=== PATIENT | female | born 1980 | race Caucasian/White ===

== ENCOUNTER 2018-12-31 18:55 | Emergency (ER) | payer MEDICAID ==
[~2018-12-31] VITALS: Ht 154.9 cm; Wt 70.3 kg
[~2018-12-31 18:55] MED LIST: ACET-8386 PO; CLIN150C1 PO
[2018-12-31 19:04] VITALS: BP 176/80
--- NOTE | 2018-12-31 20:41 | NUR ---
PATIENT AMB TO BED 10.
--- NOTE | 2018-12-31 21:05 | NUR ---
BIB SELF WITH C/O CP AND BACK PAIN ASSOCITATED WITH COUGH. +N/V/D. STATES PAIN 7/10 AT THIS TIME. DENIES FEVER. LUNG SOUNDS DIMINSHED THROUGHOUT. VSS. AAO. NO LABORED BREATHING AT THIS TIME.
--- NOTE | 2018-12-31 21:05 | NUR ---
XRAY AT BEDSIDE.
[2018-12-31 21:45] VITALS: BP 174/89
--- NOTE | 2018-12-31 21:45 | NUR ---
Patient discharged with v/s stable. Written and verbal after care instructions given and explained. Patient alert, oriented and verbalized understanding of instructions. Ambulatory with steady gait. All questions addressed prior to discharge. ID band removed. Patient advised to follow up with PMD. Rx of PREDNISONE, PROMETHAZINE, AND MOTRIN given. Patient educated on indication of medication including possible reaction and side effects. Opportunity to ask questions provided and answered.
[2019-05-05] MEDS ORDERED: HYDR-5 PO (20:42)
[2019-05-05] MEDS ORDERED: METF1000 PO (20:42)
== END 2018-12-31 21:45 | disposition home or self-care (01) ==
LOC: MED 18:55
DX: R05 Cough (principal); R19.7 Diarrhea, unspecified; R11.2 Nausea with vomiting, unspecified; R50.9 Fever, unspecified; Z79.891 Long term (current) use of opiate analgesic; Z79.2 Long term (current) use of antibiotics; Z88.1 Allergy status to other antibiotic agents
CPT/HCPCS: 71045; 99283; Q0092

== ENCOUNTER 2019-06-19 12:13 | Inpatient (IN) | payer MEDICAID ==
[~2019-06-19] VITALS: Ht 154.9 cm; Wt 68.0 kg
--- NOTE | 2019-06-19 07:15 | NUR ---
PT ENDORSED TO SCISSORS SHARPENER NURSE IN STABLE CONDITION. Addendum: 06/19/19 at 1930 by Patti Gustafson RN CHARTED ON WRONG TIME - MEANT 19:15
[~2019-06-19 12:13] MED LIST changes: -ACET-8386 PO; -CLIN150C1 PO; +HYDR-132 PO; +METF1000 PO
[2019-06-19 12:16] VITALS: BP 136/88
--- NOTE | 2019-06-19 12:16 | NUR ---
BIB SELF. AAO X4 C/O VAGINAL BLEEDING, LOWER ABDOMEN PAIN, DIZZINESS X 1 WEEK. PT WAS SEEN BY PCP TODAY AND WAS REFERRED HERE FOR D&C DUE TO UTERINE FIBROIDS. PT DENIES DYSURIA, FEVER, N/V/D, SOB. PT AMBULATED WITH STEADY GAIT. ER TO EVALUATE PT. PMH: ANEMIA, DM, HTN, KIDNEY FUNCTION 20% MED RX: NORETHINDRONE 5MG, MEDROXYROGESTERONE 10 MG, LISINOPRIL, INSULIN, FERROUS-SULFATE 325 MG ALLERGIES: BACITRACIN
--- NOTE | 2019-06-19 12:30 | NUR ---
PT STATES SHE CAN'T GIVE URINE AT THIS TIME. WILL TRY AGAIN LATER
[2019-06-19] MEDS ORDERED: NACL 0.9% 500 ML IV ONE (12:40)
--- NOTE | 2019-06-19 12:50 | NUR ---
IV INITIATED TO LAC 20G INTACT AND PATENT. LAB DRAWN ORDERED AND GIVEN TO LAB. PT TOLERATED WELL.
--- NOTE | 2019-06-19 13:00 | NUR ---
ULTRASOUND AT BEDSIDE.
[2019-06-19 13:07] LABS: BASOPHILS # (AUTO) 0.1 K/uL (0.00-0.22); BASOPHILS % (AUTO) 0.9 % (0.0-2.0); EOSINOPHILS # (AUTO) 0.1 K/uL (0-0.4); EOSINOPHILS % (AUTO) 1.4 % (0.0-4.0); HEMATOCRIT 27.2 % (36-48); HEMOGLOBIN 8.8 g/dL (12.0-16.0); LYMPHOCYTES # (AUTO) 2.3 K/uL (2.5-16.5); MEAN CORPUSCULAR HEMOGLOBIN 24 pg (27-31); MEAN CORPUSCULAR HGB CONC 32 g/dL (33-37); MEAN CORPUSCULAR VOLUME 74.7 fL (80-94); MONOCYTES # (AUTO) 0.4 K/uL (0.8-1.0); MONOCYTES % (AUTO) 4.3 % (1.7-9.3); NEUTROPHILS # (AUTO) 5.3 K/uL (1.8-7.7); NEUTROPHILS % (AUTO) 65.4 % (42.2-75.2); PLATELET COUNT (AUTO) 309 K/uL (140-450); RED BLOOD CELL COUNT(AUTO) 3.65 MIL/uL (4.20-5.40); RED CELL DISTRIBUTION WIDTH 30.4 % (11.6-13.7); WHITE BLOOD COUNT (AUTO) 8.2 K/uL (4.8-10.8)
--- NOTE | 2019-06-19 13:30 | NUR ---
Patient being evaluated by Dr. Odonnell at bedside.
[2019-06-19 13:38] LABS: PROTHROMBIN TIME 9.2 secs (10.8-13.4)
--- NOTE | 2019-06-19 13:40 | NUR ---
PT AMBULATED TO THE BATHROOM WITH STEADY GAIT. URINE CUP GIVEN.
--- NOTE | 2019-06-19 13:45 | NUR ---
PT AMBULATED BACK TO BED WITH STEADY GAIT. UNABLE TO GIVE URINE SPECIMEN AT THIS TIME. WILL TRY AGAIN LATER. PROVIDED WITH FLUIDS.
[2019-06-19 13:50] LABS: ANION GAP 16.4 (8-16); CARBON DIOXIDE 19.5 mmol/L (21-32); POTASSIUM 6.9 mmol/L (3.5-5.1)
[2019-06-19 13:51] LABS: CREATININE 2.2 mg/dL (0.6-1.3); TOTAL BILIRUBIN 0.1 mg/dL (0.0-1.0)
[2019-06-19 13:52] LABS: ALBUMIN 3.2 g/dL (3.4-5.0)
[2019-06-19] MEDS ORDERED: CALCIUM GLUCONATE 10% 1000 MG/10 ML VIAL IVP ONE (14:00)
[2019-06-19] MEDS ORDERED: SODIUM POLYSTYRENE 15 GM/60 ML UDBTL PO ONE (14:00)
[2019-06-19] MEDS ORDERED: INSULIN REGULAR, HUMAN 100 UNIT/ML VIAL IVP ONE (14:00)
[2019-06-19] MEDS ORDERED: DEXTROSE 50% 50 ML SYR IVP ONE (14:00)
--- NOTE | 2019-06-19 14:31 | NUR ---
PT OFFERED SNACKS AND JUICE AT THIS TIME.
[2019-06-19] MEDS ORDERED: LISI-420 PO (14:39)
[2019-06-19] MEDS ORDERED: MEDR10TA33 PO (14:39)
[2019-06-19] MEDS ORDERED: FERR325E14 PO (14:40)
[2019-06-19] MEDS ORDERED: INSU100I7 SQ (14:47)
[2019-06-19] MEDS ORDERED: NORE5TAB6 PO (14:49)
--- NOTE | 2019-06-19 15:00 | NUR ---
URINE SPECIMEN OBTAINED VIA CATH URING STERILE TECHNIQUE. PT TOLERATED WELL. URINE OUTPUT 100 ML OBTAINED.
[2019-06-19] MEDS ORDERED: NACL 0.9% 1,000 ML IV SCH (15:29)
[2019-06-19] MEDS ORDERED: ZOLPIDEM 5 MG TAB PO PRN (15:30)
[2019-06-19] MEDS ORDERED: ACETAMINOPHEN 325 MG TAB PO PRN (15:30)
[2019-06-19] MEDS ORDERED: DOCUSATE SODIUM 100 MG GELCAP PO PRN (15:30)
[2019-06-19] MEDS ORDERED: ONDANSETRON 4 MG/2 ML VIAL IM/IVP PRN (15:30)
--- NOTE | 2019-06-19 15:58 | NUR ---
PT ASLEEP. EASILY AROUSABLE BY VOICE. EVEN AND UNLABORED BREATHING. NO SIGNS AND SYMPTOMS OF DISTRESS NOTED. DIMMED LIGHTS FOR COMFORT
[2019-06-19 16:30] VITALS: BP 172/75
[2019-06-19 16:30] LABS: APPEARANCE,URINE CLOUDY (CLEAR); BILIRUBIN,URINE NEGATIVE (NEGATIVE); BLOOD, URINE 2+ (NEGATIVE); LEUKOCYTE ESTERASE ,URINE NEGATIVE (NEGATIVE); NITRITE, URINE NEGATIVE (NEGATIVE); PH,URINE 5.5 (5.0-9.0); UGLUCOSE 1+ (NEGATIVE)
--- NOTE | 2019-06-19 16:30 | NUR ---
Patient will be admitted to care of DR SUAREZ. Admited to TELE. Will go to room 105 A. Belongings list completed. Report to MI WELCH.
--- NOTE | 2019-06-19 16:30 | NUR ---
RECEIVED PT FROM ED NURSE MELY. PT IS AWAKE AND ALERT, AND ABLE TO AMBULATE WITHOUT ASSISTANCE. PT IS ON ROOM AIR, SKIN IS INTACT. IV SITE IS IN THE L AC 20 G. PT STATES THAT SHE IS STILL BLEEDING "A LITTLE BIT". SHE IS NOT C/O ANY PAIN OR DISCOMFORT AT THIS TIME. VS UPON ADMISSION: BP 172/75, HR 102, O2 100%, TEMP 98.2, RR 16. CALL LIGHT GIVEN WITHIN REACH, WILL CONTINUE TO MONITOR PT.
[2019-06-19 16:34] LABS: COLOR,URINE STRAW (YELLOW)
--- NOTE | 2019-06-19 16:37 | NUR ---
PT SEEN BY DR VO. HE SAID HE WANTS PT TO BE NPO AFTER MIDNIGHT TO POSSIBLY DO THE D&C TOMORROW.
[2019-06-19 16:38] LABS: RBC,URINE NONE SEEN /HPF (0-5); WBC,URINE NONE SEEN /HPF (0-5)
[2019-06-19 16:39] LABS: BARBITURATE, URINE NEG. ng/ml (NEG <=200); BENZODIAZEPINE, URINE NEG. ng/mL (NEG <=200); CANNABINOID, URINE NEG. ng/mL (NEG <=50); COCAINE, URINE NEG. ng/mL (NEG <=300); OPIATE, URINE NEG. ng/mL (NEG <=2000); PHENCYCLIDINE SCREEN,URINE NEG. ng/mL (NEG <=25)
[2019-06-19 16:44] LABS: URINE AMORPHOUS URATE 3+ /HPF (None Seen)
--- NOTE | 2019-06-19 17:17 | NUR ---
PT SEEN BY DR ESTRADA
[2019-06-19] MEDS ORDERED: HYDR-39 PO (17:28)
[2019-06-19] MEDS ORDERED: DEXTROSE 50% 50 ML SYR IVP PRN (17:30)
[2019-06-19] MEDS ORDERED: INSULIN LISPRO SLIDING SCALE 100 UNITS/ML VIAL SUBQ PRN (17:30)
[2019-06-19 17:40] LABS: FREE T4 (FREE THYROXINE) 0.91 ng/dL (0.76-1.46); MAGNESIUM 1.8 mg/dL (1.8-2.4); PHOSPHORUS 5.1 mg/dL (2.5-4.9); THYROID STIMULATING HORMONE 1.94 uIU/mL (0.34-3.74)
[2019-06-19] MEDS ORDERED: hydrALAZINE 20 MG/ML VIAL IVP PRN (17:50)
--- NOTE | 2019-06-19 18:41 | NUR ---
PT'S OWN MED (NORETHINDRONE 5 MG TABS) TAKEN TO PHARMACY FOR DISPENSING.
--- NOTE | 2019-06-19 19:15 | NUR ---
RECEIVED BEDSIDE REPORT FROM AM SHIFT RN REBEKAH, FOR PT'S CONTINUITY OF CARE. PT IS LYING DOWN, AWAKE, ALERT, ORIENTED X 4, WATCHING TV, IS ON ROOM AIR, ON RNFA, HAS IV ON LEFT AC 20G INFUSING WITH NS AT 60ML/HR, DENIES PAIN AT THIS TIME. EXPLAINED TO PT HOLE DIGGER OPERATOR ROUTINE, PT VERBALIZED UNDERSTANDING. BED IS ON LOW POSITION, SIDE RAILS ARE UP, AND CALL LIGHT IS WITHIN REACH. WILL MONITOR PT THROUGHOUT SHIFT.
--- NOTE | 2019-06-19 19:15 | NUR ---
PT ENDORSED TO EDGER MACHINE HELPER NURSE IN STABLE CONDITION.
[2019-06-19 20:00] VITALS: BP 158/70
[2019-06-19] MEDS: INSULIN LANTUS 100 UNITS/ML 10 ML VIAL SUBQ SCH (20:29)
[2019-06-19] MEDS: BLOOD GLUCOSE MONITORING 1 DEV DEV FS SCH (20:39)
--- NOTE | 2019-06-19 20:40 | NUR ---
VS AND BLOOD GLUCOSE CHECKED AND CHARTED. NO INSULIN COVERAGE NEEDED. ADMINISTERED SCHEDULED SUBQ MEDICATION ORDERED. PT TOLERATED THEM WELL. WILL CONTINUE TO MONITOR PT.
[2019-06-19] MEDS ORDERED: INSULIN GLARGINE HUM REC ANLOG 20 UNIT SQ SCH (21:00)
[2019-06-19 21:27] LABS: BASOPHILS # (AUTO) 0.1 K/uL (0.00-0.22); BASOPHILS % (AUTO) 0.7 % (0.0-2.0); EOSINOPHILS # (AUTO) 0.2 K/uL (0-0.4); EOSINOPHILS % (AUTO) 1.9 % (0.0-4.0); HEMATOCRIT 24.6 % (36-48); LYMPHOCYTES # (AUTO) 2.7 K/uL (2.5-16.5); MEAN CORPUSCULAR HEMOGLOBIN 24 pg (27-31); MEAN CORPUSCULAR HGB CONC 33 g/dL (33-37); MEAN CORPUSCULAR VOLUME 74.5 fL (80-94); MONOCYTES # (AUTO) 0.6 K/uL (0.8-1.0); MONOCYTES % (AUTO) 5.8 % (1.7-9.3); NEUTROPHILS # (AUTO) 6.4 K/uL (1.8-7.7); NEUTROPHILS % (AUTO) 64.6 % (42.2-75.2); PLATELET COUNT (AUTO) 266 K/uL (140-450); RED CELL DISTRIBUTION WIDTH 30.5 % (11.6-13.7); WHITE BLOOD COUNT (AUTO) 9.9 K/uL (4.8-10.8)
--- NOTE | 2019-06-19 22:00 | NUR ---
CURRENT IV SITE HAS HIGH PRESSURE. STARTED NEW IV ON RIGHT FA 22G. PT TOLERATED IT WELL. DC LEFT AC IV, CATH TIP PATENT AND INTACT.
[2019-06-19 22:03] LABS: ANION GAP 14.4 (8-16); CREATININE 1.7 mg/dL (0.6-1.3); POTASSIUM 5.4 mmol/L (3.5-5.1)
[2019-06-20] VITALS: BP 157/65
--- NOTE | 2019-06-20 00:15 | NUR ---
VS CHECKED AND CHARTED. PT DENIES ANY PAIN AT THIS TIME. PT STATES SCANT VAGINAL BLEED, ONLY WHEN WIPING AFTER USING THE RESTROOM. WILL CONTINUE TO MONITOR PT.
--- NOTE | 2019-06-20 02:00 | NUR ---
MADE ROUNDS. PT LYING DOWN ASLEEP, WITH NO SIGNS OF DISTRESS. WILL CONTINUE TO MONITOR PT.
[2019-06-20 04:00] VITALS: BP 152/77
--- NOTE | 2019-06-20 04:20 | NUR ---
VS CHECKED AND CHARTED. PT DENIES PAIN AT THIS TIME. USED THE RESTROOM AND HAD BOWEL MOVEMENT, WITH VERY LIGHT VAGINAL BLEED WHEN WIPING AFTER. WILL CONTINUE TO MONITOR PT.
[2019-06-20] MEDS ORDERED: METOPROLOL 25 MG TAB PO SCH (04:30)
[2019-06-20] MEDS: DEXT 5% / NACL 0.45% 1,000 ML IV SCH ×2 (04:45→14:15)
--- NOTE | 2019-06-20 04:55 | NUR ---
ADMINISTERED SCHEDULED PO AND IV FLUID ORDERED. PT TOLERATED IT WELL. PT TEACHING GIVEN REGARDING MEDICATION, IV FLUID, AND PROCEDURE. PT VERBALIZED UNDERSTANDING. WILL CONTINUE TO MONITOR PT.
--- NOTE | 2019-06-20 05:45 | NUR ---
BLOOD GLUCOSE CHECKED AND CHARTED. RESULT IS 152, SPOKE TO DR. PERERA, PT HAVING SX AT 1400 TODAY, NPO SINCE MIDNIGHT. MD ADVISED TO HOLD OFF INSULIN, AND RECHECK BEFORE LUNCH TIME. PT AWARE AND VERBALIZED UNDERSTANDING.
[2019-06-20 05:48] LABS: BASOPHILS # (AUTO) 0.1 K/uL (0.00-0.22); BASOPHILS % (AUTO) 0.6 % (0.0-2.0); EOSINOPHILS # (AUTO) 0.2 K/uL (0-0.4); EOSINOPHILS % (AUTO) 2.9 % (0.0-4.0); HEMATOCRIT 22.5 % (36-48); HEMOGLOBIN 7.4 g/dL (12.0-16.0); LYMPHOCYTES # (AUTO) 2.3 K/uL (2.5-16.5); LYMPHOCYTES % (AUTO) 26.8 % (20.5-51.1); MEAN CORPUSCULAR HEMOGLOBIN 25 pg (27-31); MEAN CORPUSCULAR HGB CONC 33 g/dL (33-37); MEAN CORPUSCULAR VOLUME 75.1 fL (80-94); MONOCYTES # (AUTO) 0.6 K/uL (0.8-1.0); MONOCYTES % (AUTO) 7.4 % (1.7-9.3); NEUTROPHILS # (AUTO) 5.2 K/uL (1.8-7.7); NEUTROPHILS % (AUTO) 62.3 % (42.2-75.2); PLATELET COUNT (AUTO) 231 K/uL (140-450); RED BLOOD CELL COUNT(AUTO) 2.99 MIL/uL (4.20-5.40); RED CELL DISTRIBUTION WIDTH 29.8 % (11.6-13.7); WHITE BLOOD COUNT (AUTO) 8.4 K/uL (4.8-10.8)
[2019-06-20] MEDS: BLOOD GLUCOSE MONITORING 1 DEV DEV FS SCH ×4 (05:53→20:44)
--- NOTE | 2019-06-20 06:14 | NUR ---
PT LYING DOWN ASLEEP, WITH NO SIGNS OF DISTRESS. WILL ENDORSE TO AM SHIFT RN FOR PT'S CONTINUITY OF CARE, WILL ENDORSE REGARDING BLOOD GLUCOSE CHECK/INSULIN COVERAGE.
[2019-06-20 06:40] LABS: CARBON DIOXIDE 18.5 mmol/L (21-32); CREATININE 1.7 mg/dL (0.6-1.3); POTASSIUM 4.5 mmol/L (3.5-5.1)
[2019-06-20 06:46] LABS: MAGNESIUM 1.4 mg/dL (1.8-2.4); PHOSPHORUS 5.5 mg/dL (2.5-4.9)
--- NOTE | 2019-06-20 07:10 | NUR ---
RECEIVED ENDORSEMENT FROM DIAMOND POWDER MIXER NURSE. PATIENT IS AAOX4, ICELANDIC SPEAKING. RESPIRATIONS ARE EVEN AND UNLABORED ON ROOM AIR. PATIENT DENIES ANY PAIN AT THIS TIME. RIGHT FA 22G IV INTACT, PATENT, AND INFUSING IVF. PLAN OF CARE WAS REVIEWED WITH PATIENT, PATIENT VERBALIZED UNDERSTANDING. SAFETY MEASURES IN PLACE, CALL LIGHT WITHIN REACH.
[2019-06-20 08:00] VITALS: BP 142/74
[2019-06-20] MEDS: HYDROcodone/APAP 5/325 MG 1 TAB TAB PO PRN (08:17)
--- NOTE | 2019-06-20 08:17 | NUR ---
PATIENT HAS BEEN SCREENED AND CATEGORIZED MODERATE NUTRITION RISK. PATIENT WILL BE SEEN WITHIN 3-5 DAYS OF ADMISSION. 06/21/19-06/23/[address]
[2019-06-20] MEDS: LISINOPRIL 20 MG TAB PO SCH (08:32)
[2019-06-20] MEDS: FERROUS SULFATE 325 MG TABEC PO SCH (08:32)
[2019-06-20] MEDS: HYDROCHLOROTHIAZIDE 25 MG TAB PO SCH (08:33)
--- NOTE | 2019-06-20 08:33 | NUR ---
ADMINISTERED SCHEDULED MEDICATIONS. PATIENT TOLERATED WELL. NO OTHER NEEDS AT THIS TIME, WILL CONTINUE TO MONITOR.
[2019-06-20] MEDS ORDERED: NORETHINDRONE ACETATE 5 MG PO SCH (09:00)
[2019-06-20] MEDS ORDERED: NON-FORMULARY ITEM (Lisinopril/Hydrochlorothiazide (Lisinopril-Hctz 20-25 mg Tab) 1 TAB) PO SCH (09:00)
[2019-06-20] MEDS ORDERED: MAG SULF 2000 MG/WATER PREMIX 50 ML IV SCH (10:00)
[2019-06-20] MEDS ORDERED: MORPHINE SULFATE 2 MG/ML SYR IVP PRN (10:50)
--- NOTE | 2019-06-20 10:56 | NUR ---
PATIENT VOMITED A SMALL AMOUNT OF YELLOW EMESIS. ADMINISTERED ZOFRAN PRN IVP FOR N/V. PATIENT TOLERATED WELL. NO OTHER NEEDS AT THIS TIME, WILL CONTINUE TO MONITOR.
[2019-06-20 12:00] VITALS: BP 137/74
--- NOTE | 2019-06-20 12:15 | NUR ---
PATIENT SLEEPING, VISIBLE RISE AND FALL OF CHEST. NO OTHER NEEDS AT THIS TIME, WILL CONTINUE TO MONITOR.
--- NOTE | 2019-06-20 14:07 | NUR ---
PATIENT TAKEN OFF UNIT. WILL CONTINUE TO MONITOR UPON ARRIVAL.
[2019-06-20 15:07] LABS: TRANSFERRIN 237 mg/dL (200-370)
[2019-06-20] MEDS ORDERED: PROPOFOL 200 MG/20 ML VIAL IV ONE (16:11)
[2019-06-20] MEDS ORDERED: ONDANSETRON 4 MG/2 ML VIAL IVP ONE (16:11)
[2019-06-20] MEDS ORDERED: DESFLURANE 240 ML BTL INH ONE (16:11)
[2019-06-20] MEDS ORDERED: fentaNYL 0.05 MG/ML VIAL ONE (16:13)
[2019-06-20] MEDS ORDERED: KETOROLAC 30 MG/ML VIAL IVP ONE (16:40)
[2019-06-20 17:25] VITALS: BP 159/79
--- NOTE | 2019-06-20 17:25 | NUR ---
PATIENT RETURNED FROM OR. REPORT OBTAINED FROM REBEKAH. PATIENT IS AWAKE AND ALERT. VS OBTAINED. PATIENT IS STABLE AT THIS TIME, WILL CONTINUE TO MONITOR.
--- NOTE | 2019-06-20 19:12 | NUR ---
ENDORSED PATIENT TO SHOWROOM EXECUTIVE DIRECTOR NURSE FOR CONTINUITY OF CARE. PATIENT IS STABLE AT THIS TIME.
--- NOTE | 2019-06-20 19:15 | NUR ---
RECEIVED PT FROM JERMAINE RN PT IS AAOX4 AMBULATORY IV ON RT FOREARM INFUSING WELL, ON TELEMETRY ST NOT DISTRESS NOTED NOT ACTIVE VAGINAL BLEEDING INITIAL ASSESSMENT DONE
[2019-06-20 20:00] VITALS: BP 153/77
[2019-06-20] MEDS: INSULIN LANTUS 100 UNITS/ML 10 ML VIAL SUBQ SCH (20:48)
--- NOTE | 2019-06-20 21:30 | NUR ---
BLOOD SUGAR TEST 188 COVERAGE WITH 2 UNITS SUBQ HUMALOG FOLLOW PROTOCOL
[2019-06-20] MEDS: NACL 0.9% 1,000 ML IV SCH (22:50)
[2019-06-21] VITALS: BP 139/70
--- NOTE | 2019-06-21 | NUR ---
PT SLEEPING WELL NOT DISTRESS NOTED ON TELEMETRY SR
[2019-06-21 04:00] VITALS: BP 134/61
--- NOTE | 2019-06-21 04:00 | NUR ---
SPONGE BATH GIVEN LINEN CHANGED NOT DISTRESS NOTED ON TELE SR
[2019-06-21 05:52] LABS: BASOPHILS # (AUTO) 0.1 K/uL (0.00-0.22); BASOPHILS % (AUTO) 0.7 % (0.0-2.0); EOSINOPHILS # (AUTO) 0.2 K/uL (0-0.4); EOSINOPHILS % (AUTO) 2.3 % (0.0-4.0); HEMATOCRIT 22.5 % (36-48); HEMOGLOBIN 7.5 g/dL (12.0-16.0); LYMPHOCYTES # (AUTO) 2.7 K/uL (2.5-16.5); MEAN CORPUSCULAR HEMOGLOBIN 25 pg (27-31); MEAN CORPUSCULAR HGB CONC 33 g/dL (33-37); MEAN CORPUSCULAR VOLUME 75.6 fL (80-94); MONOCYTES # (AUTO) 0.5 K/uL (0.8-1.0); MONOCYTES % (AUTO) 5.2 % (1.7-9.3); NEUTROPHILS # (AUTO) 5.4 K/uL (1.8-7.7); PLATELET COUNT (AUTO) 267 K/uL (140-450); RED BLOOD CELL COUNT(AUTO) 2.98 MIL/uL (4.20-5.40); WHITE BLOOD COUNT (AUTO) 8.8 K/uL (4.8-10.8)
[2019-06-21] MEDS: BLOOD GLUCOSE MONITORING 1 DEV DEV FS SCH ×2 (06:22→11:30)
--- NOTE | 2019-06-21 06:24 | NUR ---
BLOOD SUGAR TEST 133 NOT COVERAGE PT SLEEPING WELL ON TELE ST
[2019-06-21 06:35] LABS: ANION GAP 13.9 (8-16); CREATININE 1.6 mg/dL (0.6-1.3); POTASSIUM 4.9 mmol/L (3.5-5.1)
[2019-06-21 06:42] LABS: MAGNESIUM 1.7 mg/dL (1.8-2.4); PHOSPHORUS 4.8 mg/dL (2.5-4.9)
[2019-06-21 07:30] LABS: LYMPHOCYTES % (AUTO) 30.7 % (20.5-51.1); NEUTROPHILS % (AUTO) 61.1 % (42.2-75.2)
[2019-06-21] MEDS: HYDROcodone/APAP 5/325 MG 1 TAB TAB PO PRN (07:36)
[2019-06-21 08:00] VITALS: BP 143/73
--- NOTE | 2019-06-21 08:25 | NUR ---
RECEIVED ENDORSEMENT CHARGE NURSE. PATIENT IS AAOX4, EGYPTIAN SPEAKING. RESPIRATIONS ARE EVEN AND UNLABORED ON ROOM AIR. PATIENT DENIES ANY PAIN AT THIS TIME. RIGHT FA 22G IV INTACT, PATENT, AND INFUSING IVF. PLAN OF CARE WAS REVIEWED WITH PATIENT, PATIENT VERBALIZED UNDERSTANDING. SAFETY MEASURES IN PLACE, CALL LIGHT WITHIN REACH.
[2019-06-21] MEDS: FERROUS SULFATE 325 MG TABEC PO SCH (09:33)
[2019-06-21] MEDS: LISINOPRIL 20 MG TAB PO SCH (09:33)
[2019-06-21] MEDS: HYDROCHLOROTHIAZIDE 25 MG TAB PO SCH (09:33)
[2019-06-21] MEDS: NACL 0.9% 1,000 ML IV SCH (09:34)
--- NOTE | 2019-06-21 09:35 | NUR ---
ADMINISTERED SCHEDULED MEDICATIONS. PATIENT TOLERATED WELL. NO OTHER NEEDS AT THIS TIME, WILL CONTINUE TO MONITOR.
--- NOTE | 2019-06-21 11:34 | NUR ---
PATIENT RESTING IN BED. NO SIGNS OF DISTRESS. NO OTHER NEEDS AT THIS TIME, WILL CONTINUE TO MONITOR.
[2019-06-21 12:00] VITALS: BP 151/78
[2019-06-21] MEDS ORDERED: MAGNESIUM OXIDE 400 MG TAB PO SCH (12:00)
--- NOTE | 2019-06-21 13:08 | NUR ---
DISCHARGE INSTRUCTIONS PROVIDED TO PATIENT, PATIENT VERBALIZED UNDERSTANDING. ALL QUESTIONS AND CONCERNS ADDRESSED. IV WAS REMOVED, CANNULA INTACT, WITH MINIMAL BLEEDING. PATIENT TO BE DISCHARGED HOME. PENDING TO COME PICK HER UP.
--- NOTE | 2019-06-21 13:55 | NUR ---
ID BAND WAS REMOVED. PATIENT WAS LEFT UNIT VIA WHEELCHAIR. ALL BELONGINGS LEFT WITH PATIENT. PATIENT ACCOMPANIED BY . PATIENT IS STABLE AT THIS TIME.
[2019-06-23 06:07] LABS: FERRITIN 48 ng/mL (15-150); FOLIC ACID > 20.00 ng/mL (>3.0)
== END 2019-06-21 13:40 | disposition home or self-care (01) | DRG 517 ==
LOC: MED 12:13 → MTU 15:29 → MED 16:15
PROVIDERS: ADMIT General Practice; ATTEND General Practice
PROC: 0UDB7ZZ Extraction of Endometrium, Via Natural or Artificial Opening (ICD-10-PCS; principal; 2019-06-20 14:00)
DX: N93.8 Other specified abnormal uterine and vaginal bleeding (principal); N17.0 Acute kidney failure with tubular necrosis; E11.22 Type 2 diabetes mellitus with diabetic chronic kidney disease; E87.5 Hyperkalemia; E11.65 Type 2 diabetes mellitus with hyperglycemia; B35.1 Tinea unguium; D50.9 Iron deficiency anemia, unspecified; E83.42 Hypomagnesemia; E11.9 Type 2 diabetes mellitus without complications; N18.9 Chronic kidney disease, unspecified; I12.9 Hypertensive chronic kidney disease with stage 1 through stage 4 chronic kidney disease, or unspecified chronic kidney disease; N83.202 Unspecified ovarian cyst, left side; N83.201 Unspecified ovarian cyst, right side; Z88.8 Allergy status to other drugs, medicaments and biological substances; Z83.3 Family history of diabetes mellitus; Z82.49 Family history of ischemic heart disease and other diseases of the circulatory system
CPT/HCPCS: 36415; 76830; 76856; 80048; 80053; 80305; 81001; 81025; 82150; 82607; 82728; 82746; 82948; 83036; 83540; 83690; 83735; 83880; 84100; 84134; 84439; 84443; 84484; 85025; 85045; 85610; 85730; 87081; 88305; 93005; 96361; 96374; 96375; 99285; J0360; J0610; J1815; J2270; J2405; J2704; J3010; J3475; J7030; Q0092

== ENCOUNTER 2019-12-08 16:44 | Inpatient (IN) | payer MEDICAID ==
[~2019-12-08] VITALS: Ht 152.4 cm; Wt 78.0 kg
[~2019-12-08 16:44] MED LIST changes: +FERR325E14 PO; -HYDR-132 PO; +HYDR-39 PO; +INSU100I7 SQ; -METF1000 PO; +NORE5TAB6 PO
[2019-12-08 16:58] VITALS: BP 152/80
--- NOTE | 2019-12-08 17:03 | NUR ---
URINE CUP HANDED TO PT FOR SAMPLE
--- NOTE | 2019-12-08 17:15 | NUR ---
39 Y/O PRESENTS TO THE ER STATING SHE WAS TOLD BY RADIO INSTALLER AUTOMOBILE DOCTOR TO COME INTO ER DUE TO LOW HGB, AND NEEDING BLOOD TRANSFUSION. PT STATES SHE HAS BEEN VOMITING X THIS MORNING. HAS HAD SOME DIZZINESS THROUGHOUT THE DAY. DENIES FEVER, DIARRHEA. DENIES ANY PAIN. WILL CONTINUE TO MONITOR. SIDERAIL X 1. PMH: DM, HTN, HYPERLIPIDEMIA, ANEMIA ALLERGIES: BACITRACIN
--- NOTE | 2019-12-08 17:20 | NUR ---
20 G BULMARO, LABS DRAWN
[2019-12-08 17:50] LABS: BASOPHILS # (AUTO) 0.1 K/uL (0.00-0.22); BASOPHILS % (AUTO) 0.6 % (0.0-2.0); EOSINOPHILS # (AUTO) 0.1 K/uL (0-0.4); EOSINOPHILS % (AUTO) 1.3 % (0.0-4.0); HEMATOCRIT 20.3 % (36-48); LYMPHOCYTES # (AUTO) 2.2 K/uL (2.5-16.5); LYMPHOCYTES % (AUTO) 20.7 % (20.5-51.1); MEAN CORPUSCULAR HEMOGLOBIN 27 pg (27-31); MEAN CORPUSCULAR HGB CONC 34 g/dL (33-37); MEAN CORPUSCULAR VOLUME 79.8 fL (80-94); MONOCYTES # (AUTO) 0.5 K/uL (0.8-1.0); MONOCYTES % (AUTO) 5.1 % (1.7-9.3); NEUTROPHILS # (AUTO) 7.8 K/uL (1.8-7.7); NEUTROPHILS % (AUTO) 72.3 % (42.2-75.2); PLATELET COUNT (AUTO) 373 K/uL (140-450); RED BLOOD CELL COUNT(AUTO) 2.54 MIL/uL (4.20-5.40); RED CELL DISTRIBUTION WIDTH 13.5 % (11.6-13.7); WHITE BLOOD COUNT (AUTO) 10.7 K/uL (4.8-10.8)
[2019-12-08 17:53] LABS: HEMOGLOBIN 6.8 g/dL (12.0-16.0)
--- NOTE | 2019-12-08 18:02 | NUR ---
ERMD BEDSIDE EVALUATING PT
[2019-12-08 18:12] LABS: ALBUMIN 2.8 g/dL (3.4-5.0); ANION GAP 12.6 (8-16); CARBON DIOXIDE 23.9 mmol/L (21-32); CREATININE 3.1 mg/dL (0.6-1.3); POTASSIUM 4.5 mmol/L (3.5-5.1); TOTAL BILIRUBIN 0.1 mg/dL (0.0-1.0)
[2019-12-08 18:45] LABS: APPEARANCE,URINE CLEAR (CLEAR); BILIRUBIN,URINE NEGATIVE (NEGATIVE); BLOOD, URINE 2+ (NEGATIVE); COLOR,URINE YELLOW (YELLOW); LEUKOCYTE ESTERASE ,URINE NEGATIVE (NEGATIVE); NITRITE, URINE NEGATIVE (NEGATIVE); UGLUCOSE TRACE (NEGATIVE)
[2019-12-08 18:55] LABS: PROTHROMBIN TIME 9.5 secs (10.8-13.4)
[2019-12-08] MEDS ORDERED: ATOR20TA PO (19:03)
--- NOTE | 2019-12-08 19:21 | NUR ---
REPORT GIVEN TO MI COELHO. TRANSFER OF CARE AT THIS TIME
[2019-12-08 19:37] LABS: RBC,URINE 11-20 (MOD) /HPF (0-5); WBC,URINE 0-5 /HPF (0-5)
[2019-12-08] MEDS ORDERED: ONDANSETRON 4 MG/2 ML VIAL IM/IVP PRN (19:45)
[2019-12-08] MEDS ORDERED: DOCUSATE SODIUM 100 MG GELCAP PO PRN (19:45)
[2019-12-08 20:00] VITALS: BP 171/85
--- NOTE | 2019-12-08 20:10 | NUR ---
Patient will be admitted to care of DR. SUAREZ. Admited to TELE. Will go to room 123A. Belongings list completed. Report to MI FISHER.
--- NOTE | 2019-12-08 20:10 | NUR ---
ADMITTED THIS 39 YEAR OLD FEMALE FROM ER PER LONA WITH CC OF ABNORMAL LAB (LOW HEMOGLOBIN), AMBULATED TO BED WITH STEADY GAIT, SLIGHT DIZZINESS NOTED, VITAL SIGNS TAKEN, BP ELEVATED, DENIES CHEST PAIN BUT COMPLAINING OH HEADACHE AND ABDOMINAL PAIN, DENIES ANY VAGINAL BLEEDING OR SPOTTING, WILL INFORM DR ESTRADA REGARDING ELEVATED BP, PLAN OF CARE DISCUSSED, TO RECEIVED 1 UNIT PRBC TONIGHT, SAFETY MEASURES IN PLACE, CALL LIGHT WITHIN REACH.
[2019-12-08 20:44] LABS: MAGNESIUM 1.7 mg/dL (1.8-2.4); PHOSPHORUS 4.2 mg/dL (2.5-4.9); THYROID STIMULATING HORMONE 2.64 uIU/mL (0.34-3.74)
[2019-12-08] MEDS ORDERED: HYDR-39 PO (20:51)
[2019-12-08] MEDS ORDERED: DEXTROSE 50% 50 ML SYR IVP PRN (20:55)
[2019-12-08] MEDS: INSULIN LANTUS 100 UNITS/ML 10 ML VIAL SUBQ SCH (21:00)
[2019-12-08] MEDS: ATORVASTATIN 20 MG TAB PO SCH (21:00)
[2019-12-08] MEDS ORDERED: NORE-29 PO (21:16)
[2019-12-08] MEDS: BLOOD GLUCOSE MONITORING 1 DEV DEV FS SCH (21:25)
[2019-12-08] MEDS: NACL 0.9% 1,000 ML IV SCH (21:25)
[2019-12-08] MEDS ORDERED: CRUSHER, PILL MC ONE (21:27)
[2019-12-08 21:46] LABS: BARBITURATE, URINE NEGATIVE ng/ml (NEG <=200); BENZODIAZEPINE, URINE NEGATIVE ng/mL (NEG <=200); CANNABINOID, URINE NEGATIVE ng/mL (NEG <=50); COCAINE, URINE NEGATIVE ng/mL (NEG <=300); OPIATE, URINE NEGATIVE ng/mL (NEG <=2000); PHENCYCLIDINE SCREEN,URINE NEGATIVE ng/mL (NEG <=25)
[2019-12-08] MEDS ORDERED: PNEUMOCOCCAL VACCINE 23 MCG/0.5 ML VIAL IMVAC PRN (22:15)
[2019-12-08] MEDS ORDERED: INFLUENZA VACCINE QUAD 0.5 ML SYR IMVAC PRN (22:15)
--- NOTE | 2019-12-08 22:46 | NUR ---
PT AMBULATED TO TOILET WITH STANDBY ASSIST, STEADY GAIT, BM WITH LIQUID STOOL, UNABLE TO COLLECT STOOL SPECIMEN FOR LAB, PER PT IT'S MIX WITH URINE, PROVIDED WITH NEW CONTAINER AND REINFORCE TO COLLECT STOOL ONLY, VERBALIZED UNDERSTANDING, BLOOD TRANSFUSION ON-GOING, LATEST BP-171/87, ASYMPTOMATIC, DR ESTRADA MADE AWARE, WILL CHECK PT.
[2019-12-08] MEDS ORDERED: ENALAPRILAT 2.5 MG/2 ML VIAL IVP SCH (22:50)
[2019-12-08] MEDS ORDERED: guaiFENesin DM 200/20 MG-10 ML 10 ML UDC PO PRN (22:55)
[2019-12-08] MEDS ORDERED: MAG SULF 2000 MG/WATER PREMIX 50 ML IV SCH (23:10)
[2019-12-08] MEDS: ACETAMINOPHEN 325 MG TAB PO PRN (23:24)
[2019-12-09] MEDS: NACL 0.9% 1,000 ML IV SCH (00:25)
[2019-12-09 00:30] VITALS: BP 166/77
[2019-12-09] MEDS: ZOLPIDEM 5 MG TAB PO SCH ×2 (00:40→20:19)
--- NOTE | 2019-12-09 00:50 | NUR ---
PT'S BLOOD PRESSURE-166/77 AFTER BLOOD TRANSFUSION AND VASOTEC IVP GIVEN, DR ESTRADA MADE AWARE, WILL CHECK ON PT, IVF OF NS AT 60ML/H AND MAG RIDER IV INFUSING AT THIS TIME, MONITORED CLOSELY.
[2019-12-09] MEDS ORDERED: MORPHINE SULFATE 2 MG/ML SYR IVP PRN (01:05)
[2019-12-09] MEDS ORDERED: hydrALAZINE 20 MG/ML VIAL IVP SCH ×2 (01:05→16:25)
[2019-12-09] MEDS ORDERED: APAP/BUTAL/CAFF 325/50/40 MG 1 TAB PO PRN (01:05)
[2019-12-09] MEDS ORDERED: hydrALAZINE 20 MG/ML VIAL IVP PRN (01:05)
[2019-12-09 02:21] LABS: BASOPHILS # (AUTO) 0.1 K/uL (0.00-0.22); BASOPHILS % (AUTO) 0.6 % (0.0-2.0); EOSINOPHILS # (AUTO) 0.1 K/uL (0-0.4); EOSINOPHILS % (AUTO) 1.2 % (0.0-4.0); LYMPHOCYTES # (AUTO) 2.9 K/uL (2.5-16.5); MEAN CORPUSCULAR HGB CONC 34 g/dL (33-37); MONOCYTES # (AUTO) 0.8 K/uL (0.8-1.0); MONOCYTES % (AUTO) 7.3 % (1.7-9.3); RED CELL DISTRIBUTION WIDTH 14.2 % (11.6-13.7)
[2019-12-09 02:28] LABS: LYMPHOCYTES % (AUTO) 25.6 % (20.5-51.1); MEAN CORPUSCULAR HEMOGLOBIN 28 pg (27-31); MEAN CORPUSCULAR VOLUME 81.9 fL (80-94); NEUTROPHILS # (AUTO) 7.4 K/uL (1.8-7.7); NEUTROPHILS % (AUTO) 65.3 % (42.2-75.2); PLATELET COUNT (AUTO) 272 K/uL (140-450); RED BLOOD CELL COUNT(AUTO) 2.41 MIL/uL (4.20-5.40); WHITE BLOOD COUNT (AUTO) 11.3 K/uL (4.8-10.8)
[2019-12-09 02:38] LABS: HEMOGLOBIN 6.6 g/dL (12.0-16.0)
[2019-12-09 02:39] LABS: HEMATOCRIT 19.8 % (36-48)
[2019-12-09 02:41] LABS: CARBON DIOXIDE 23.2 mmol/L (21-32); POTASSIUM 4.2 mmol/L (3.5-5.1)
--- NOTE | 2019-12-09 02:45 | NUR ---
RECEIVED CRITICAL RESULT OF HGB-6.6, HCT-19.8, DR ESTRADA MADE AWARE, STATED SHE WILL ORDER TO TRANSFUSE 1 UNIT PRBC, PT SLEEPING AT THIS TIME, MONITORED CLOSELY.
[2019-12-09 02:47] LABS: CHOL/HDL RATIO 2.4 (1-4.5)
[2019-12-09 04:00] VITALS: BP 140/71
--- NOTE | 2019-12-09 04:10 | NUR ---
VITAL SIGNS STABLE, AFEBRILE, 2ND UNIT PRBC STARTED, MONITORED FOR REACTION, VITAL SIGNS PER PROTOCOL.
[2019-12-09] MEDS: ACETAMINOPHEN 325 MG TAB PO PRN (04:32)
--- NOTE | 2019-12-09 04:40 | NUR ---
PT COMPLAINING OF ABDOMINAL PAIN, MORPHINE NOT YET DUE, DR ESTRADA MADE AWARE, CAME IN AND EXAMINED THE PT, ABDOMINAL TENDERNESS ON PALPATION DURING EXAMINATION, STATED TO KEEP PT NPO AND GIVE TYLENOL FOR NOW, MEDICATED ORDERED, MONITORED CLOSELY.
--- NOTE | 2019-12-09 05:30 | NUR ---
BLOOD SUGAR CHECKED WITH 79 RESULT, ASYMPTOMATIC, NO DISTRESS NOTED, DR ESTRADA MADE AWARE, STATED SHE WILL CHANGED IVF TO D5NS AT 60ML/H, WILL RESUME IVF ONCE BLOOD TRANSFUSION IS DONE, MONITORED CLOSELY.
[2019-12-09] MEDS ORDERED: DEXT 5% / NACL 0.9% 500 ML IV SCH (05:50)
[2019-12-09] MEDS: BLOOD GLUCOSE MONITORING 1 DEV DEV FS SCH ×4 (06:31→20:17)
[2019-12-09] MEDS: MORPHINE SULFATE 2 MG/ML SYR IVP PRN ×2 (07:05→18:33)
--- NOTE | 2019-12-09 07:05 | NUR ---
BLOOD TRANSFUSION DONE, BP ELEVATED-182/83, DR PEREZ AT BEDSIDE IS AWARE, PT COMPLAINING OF ABDOMINAL PAIN, MORPHINE IVP CHANGED TO Q4H, MEDICATED WITH MORPHINE ORDERED, IVF OF D5NS AT 60ML STARTED, MAINTAINED ON NPO, MONITORED CLOSELY.
--- NOTE | 2019-12-09 07:30 | NUR ---
PT AWAKE, NO SIGNS OF DISTRESS, BEDSIDE REPORT GIVEN TO MI YORK FOR CONTINUITY OF CARE.
--- NOTE | 2019-12-09 07:31 | NUR ---
RECEIVED REPORT FROM FEEDER CATCHER TOBACCO NURSE. PATIENT LYING DOWN IN BED, NO DISTRESS NOTED. NO ACTIVE BLEEDING NOTED, AND PATIENT DENIES ANY BLEEDING FROM VAGINA. AAOX4, CALM, COOPERATIVE, SKIN COLOR APPROPRIATE TO ETHNICITY, WARM TO TOUCH. SKIN INTACT. RESPIRATIONS EVEN, UNLABORED, ON ROOM AIR. IV SITE INTACT, PATENT, AND INFUSING IVF PER MD ORDERS. REVIEWED PLAN OF CARE WITH PATIENT. PATIENT VERBALIZED UNDERSTANDING. SAFETY MEASURES IN PLACE, CALL LIGHT WITHIN REACH. WILL CONTINUE TO MONITOR.
[2019-12-09] MEDS: DEXT 5% /NACL 0.9% 1,000 ML IV SCH ×2 (07:39→18:36)
[2019-12-09 08:00] VITALS: BP 157/84
[2019-12-09] MEDS ORDERED: HYDROCHLOROTHIAZIDE 25 MG TAB PO SCH (08:00)
[2019-12-09] MEDS ORDERED: LISINOPRIL 20 MG TAB PO SCH (08:00)
--- NOTE | 2019-12-09 08:52 | NUR ---
PATIENT HAS BEEN SCREENED AND CATEGORIZED MODERATE NUTRITION RISK. PATIENT WILL BE SEEN WITHIN 3-5 DAYS OF ADMISSION. 12/11/19 12/13/[address]
[2019-12-09] MEDS ORDERED: NORETHINDRONE E ESTRADIOL IRON PO SCH (09:00)
[2019-12-09] MEDS: medroxyPROGESTERone 10 MG TAB PO SCH (09:32)
[2019-12-09] MEDS: FERROUS SULFATE 325 MG TABEC PO SCH (09:32)
--- NOTE | 2019-12-09 09:34 | NUR ---
PATIENT SITTING IN BED TALKING ON HER CELLPHONE. NO DISTRESS NOTED. DENIES ANY PAIN. SCHEDULED MEDICATIONS DUE GIVEN. WILL CONTINUE TO MONITOR.
[2019-12-09 10:10] LABS: BASOPHILS % (AUTO) 0.6 % (0.0-2.0); EOSINOPHILS # (AUTO) 0.1 K/uL (0-0.4); EOSINOPHILS % (AUTO) 1.6 % (0.0-4.0); HEMATOCRIT 25.5 % (36-48); HEMOGLOBIN 8.7 g/dL (12.0-16.0); LYMPHOCYTES % (AUTO) 22.7 % (20.5-51.1); MEAN CORPUSCULAR HEMOGLOBIN 28 pg (27-31); MEAN CORPUSCULAR HGB CONC 34 g/dL (33-37); MEAN CORPUSCULAR VOLUME 82.4 fL (80-94); MONOCYTES # (AUTO) 0.6 K/uL (0.8-1.0); MONOCYTES % (AUTO) 6.7 % (1.7-9.3); NEUTROPHILS % (AUTO) 68.4 % (42.2-75.2); PLATELET COUNT (AUTO) 297 K/uL (140-450); RED BLOOD CELL COUNT(AUTO) 3.09 MIL/uL (4.20-5.40); RED CELL DISTRIBUTION WIDTH 13.9 % (11.6-13.7); WHITE BLOOD COUNT (AUTO) 8.8 K/uL (4.8-10.8)
[2019-12-09 10:22] LABS: ANION GAP 10.4 (8-16); CARBON DIOXIDE 23.2 mmol/L (21-32); CREATININE 2.9 mg/dL (0.6-1.3); POTASSIUM 4.6 mmol/L (3.5-5.1)
--- NOTE | 2019-12-09 10:44 | NUR ---
DC PLANNIN YRS OLD FEMALE PATIENT WAS ADMITTED FROM HOME WITH A DX OF SEVER ANEMIA H/H 6..8/20.3 PT HAS A HX OF HTN ,HLD AND DM. CXRAY NEGATIVE , TRANSFUSED 2 UNITS PRBC , STARTED IVF CONSULTED WITH HEEL NAIL RASPER FOR HIGH CREATININE, DC PLANING STABILIZE BP TO NORMAL LIMITS AND WILL FOLLOW UP WITH ACCOUNTANT CERTIFIED PUBLIC DR VO WITH IN ONE WEEK .CM TO FOLLOW Addendum: 12/09/19 at 1232 by Cha Beaver CM CONTACTED [facility] (COVERING FOR [facility] UNTIL 12/13/2019) AT [phone], IF PATIENT NEED TO BE TRANSFERRED TO A CONTRACTED FACILITY. SHE STATED WE DON'T HAVE TO IF WE ARE STILL TREATING THE PATIENT. SHE ALSO STATED [facility] IS THE ONE DELEGATED. CONTACTED [facility] AT [phone] X [phone], SHE STATED NO NEED TO TRANSFER THE PATIENT IF WE ARE STILL TREATING. SHE PROVIDED ME WITH AUTH [id number]. POST STABILIZATION FORM FAXED TO [phone].
[2019-12-09 12:00] VITALS: BP 174/84
--- NOTE | 2019-12-09 12:43 | NUR ---
PATIENT SITTING IN BED WITH LUNCH TRAY IN FRONT. NO DISTRESS NOTED. DENIES ANY PAIN. SCHEDULED MEDICATIONS DUE GIVEN. WILL CONTINUE TO MONITOR.
[2019-12-09 16:00] VITALS: BP 181/91
[2019-12-09] MEDS ORDERED: NIFEdipine 30 MG TABER PO SCH (16:30)
--- NOTE | 2019-12-09 16:47 | NUR ---
PATIENT LYING SITTING DOWN IN BED ON HER PHONE. NO DISTRESS NOTED. DENIES ANY PAIN. SCHEDULED BP MEDICATIONS DUE GIVEN. WILL CONTINUE TO MONITOR.
--- NOTE | 2019-12-09 18:36 | NUR ---
PATIENT COMPLAINS OF ABD PAIN RADIATING TO BACK, DESCRIBED SPASM LIKE PAIN. MORPHINE GIVEN AT THIS TIME WILL CONTINUE TO MONITOR.
--- NOTE | 2019-12-09 19:20 | NUR ---
GAVE REPORT TO IMPORT MANAGER NURSE FOR CONTINUITY OF CARE. PATIENT IN STABLE CONDITION.
--- NOTE | 2019-12-09 19:22 | NUR ---
RECEIVED P TIN STABLE CONDITION FROM AM NURSE. AWAKE,ALERT AND ORIENTED X4. ON TELE MONITOR. WITH NO C/O ANY DISCOMFORT NOTED. IVF INFUSING WELL ON THE RT AC G#20. CLEAR AND PATENT. INSTRUCTED THE NEED FOR STOOL SPECIMEN . VERBALIZED UNDERSTANDING. CONTAINER PROVIDED. BED ON LOW POSITION. SIDE RAILS UP X2, CALL LIGHT WIHTIN EASY REACH. WILL CONTINUE TO MONITOR.
[2019-12-09 19:50] VITALS: BP 169/80
[2019-12-09] MEDS: ATORVASTATIN 20 MG TAB PO SCH (20:23)
[2019-12-09] MEDS: INSULIN LANTUS 100 UNITS/ML 10 ML VIAL SUBQ SCH (20:26)
[2019-12-09] MEDS: INSULIN LISPRO SLIDING SCALE 100 UNITS/ML VIAL SUBQ PRN (20:28)
--- NOTE | 2019-12-09 20:32 | NUR ---
BLOOD SUGAR WAS CHECKED RESULT 190. INSULIN COVERAGE GIVEN SUB Q ORDERED. PROVIDED WITH SOME SNACK. WILL CONTINUE TO MONITOR.
[2019-12-09] MEDS ORDERED: ZOLPIDEM 5 MG TAB PO SCH (21:00)
--- NOTE | 2019-12-09 22:30 | NUR ---
MADE ROUNDS. PT IS ASLEEP. NO S/S OF ANY DISCOMFORT NOR PAIN NOTED. IVF INFUSING WELL.
[2019-12-10] VITALS: BP 156/71
--- NOTE | 2019-12-10 00:30 | NUR ---
PT VITAL SIGNS STABLE . NO C/O ANY PAIN NOTED. WILL CONTINUE TO MONITOR.
--- NOTE | 2019-12-10 02:00 | NUR ---
PT SLEEPING WELL. NO S/S OF ANY DISCOMFORT NOR PAIN NOTED.
--- NOTE | 2019-12-10 03:30 | NUR ---
UP TO THE BATHROOM. VOIDED NO BM NOTED. . STILL NEED STOOL SPECIMEN .
[2019-12-10 03:39] VITALS: BP 157/71
[2019-12-10] MEDS: BLOOD GLUCOSE MONITORING 1 DEV DEV FS SCH ×2 (06:11→11:58)
--- NOTE | 2019-12-10 06:11 | NUR ---
BLOOD SUGAR WAS CHECKED THIS AM 123.. NO INSULIN COVERAGE NEEDED.
[2019-12-10 06:18] LABS: BASOPHILS # (AUTO) 0.1 K/uL (0.00-0.22); BASOPHILS % (AUTO) 0.6 % (0.0-2.0); EOSINOPHILS # (AUTO) 0.2 K/uL (0-0.4); EOSINOPHILS % (AUTO) 1.7 % (0.0-4.0); HEMATOCRIT 25.2 % (36-48); HEMOGLOBIN 8.6 g/dL (12.0-16.0); LYMPHOCYTES # (AUTO) 2.5 K/uL (2.5-16.5); LYMPHOCYTES % (AUTO) 25.3 % (20.5-51.1); MEAN CORPUSCULAR HEMOGLOBIN 28 pg (27-31); MEAN CORPUSCULAR HGB CONC 34 g/dL (33-37); MONOCYTES # (AUTO) 0.9 K/uL (0.8-1.0); MONOCYTES % (AUTO) 8.8 % (1.7-9.3); NEUTROPHILS # (AUTO) 6.2 K/uL (1.8-7.7); NEUTROPHILS % (AUTO) 63.6 % (42.2-75.2); PLATELET COUNT (AUTO) 276 K/uL (140-450); RED BLOOD CELL COUNT(AUTO) 3.04 MIL/uL (4.20-5.40); RED CELL DISTRIBUTION WIDTH 14.1 % (11.6-13.7); WHITE BLOOD COUNT (AUTO) 9.7 K/uL (4.8-10.8)
[2019-12-10] MEDS: MORPHINE SULFATE 2 MG/ML SYR IVP PRN (06:24)
[2019-12-10 07:00] LABS: MAGNESIUM 1.8 mg/dL (1.8-2.4); PHOSPHORUS 3.9 mg/dL (2.5-4.9)
[2019-12-10 07:04] LABS: ANION GAP 15.4 (8-16); CARBON DIOXIDE 20.3 mmol/L (21-32); CREATININE 3.1 mg/dL (0.6-1.3); POTASSIUM 4.7 mmol/L (3.5-5.1)
--- NOTE | 2019-12-10 07:15 | NUR ---
ENDORSED PT IN STABLE CONDITION TO AM NURSE FOR CONTINUITY OF CARE.
--- NOTE | 2019-12-10 07:16 | NUR ---
RECEIVED REPORT FROM THE CONCERT MANAGER NURSE. PT IS AWAKE AND ORIENTED. IV ON R AC 20G D5NS AT 60ML. INFUSING WELL. PT IS AMBULATORY PER CONCERT MANAGER NURSE. SKIN INTACT. LBM 3/3. SO FAR, ALL TEST HAVE BEEN UNREMARKABLE EXCEPT THE TRANSVAGINAL US. PT TO HAVE AN OUT PT APPT WITH OBGYN AND HAVE AN ABLATION DONE. IF THAT IS NOT SUCCESSFUL, MAY NEED A COMPLETE HYSTERECTOMY. MAY BE GOING HOME TODAY.
[2019-12-10 08:00] VITALS: BP 135/63
[2019-12-10] MEDS: medroxyPROGESTERone 10 MG TAB PO SCH (08:55)
[2019-12-10] MEDS: FERROUS SULFATE 325 MG TABEC PO SCH (08:55)
--- NOTE | 2019-12-10 08:55 | NUR ---
MORNING MEDS WERE GIVEN. PT TOLERATED WELL. NO QUESTIONS REGARDING MEDS OR SIDE EFFECTS. WILL CONTINUE TO MONITOR PT.
[2019-12-10] MEDS ORDERED: NIFEdipine 30 MG TABER PO SCH (09:00)
[2019-12-10] MEDS ORDERED: MEDR10TA33 PO (09:22)
[2019-12-10 10:07] LABS: FOLIC ACID 6.8 ng/mL (>3.0)
--- NOTE | 2019-12-10 10:07 | NUR ---
DC ORDER IN. NOTIFIED PT. PER PT, FAMILY FRIEND CAN COME PICK HER UP AND TAKE HER HOME. WILL START ON DC INSTRUCTIONS.
[2019-12-10] MEDS: INSULIN LISPRO SLIDING SCALE 100 UNITS/ML VIAL SUBQ PRN (12:00)
--- NOTE | 2019-12-10 13:45 | NUR ---
Outboard Motor Inspector Note: Basic Screen: Yes High Risk DC Screen [place]: JUNAID Huerta Relationship: Pre-Admission Living Arrangements: Lives with Other Prior ADL Independent Current Home Health Name/Tel: N/A Current DME/02 Name/Tel: N/A Current Hospice Name/Tel: N/A Current Dialysis Name/Tel: N/A Healthcare Decision Maker: Patient Advance Directive No Physician Orders for Life Sustaining Treatment Form No Patient/Family Have Educational Needs No Information Taught: Advance Directive Person Taught: Patient Teaching Tools: Verbal Factors Affecting Learning: None Participation Level: Refused Evaluation: Verbalizes Understanding Needs Additional Education: No Discipline: Case Mgt/Social Svcs Tentative Discharge Plan/Destination: No Needs Identified Will require assistance post discharge: No Referred to Downstairs Maid: No Tentative Discharge Plan Summary: Patient is a 39-year-old female admitted for severe anemia. Patient has PMHX of anemia, migraines, HTN, HLD,and DM. Patient was admitted from home where patient lives with and children. SW met with patient at bedside to verify demographics. SW assessed for risk factors and none were apparent. Patient reported no histroy of mental health and no history of substance abuse. Tentative discharge plan is for patient to return home. No further needs identified. Signature: CHRIS Bai Date: Dec 10, 2019 Time: 13:38
--- NOTE | 2019-12-10 14:37 | NUR ---
DC INSTRUCTIONS GIVEN. ALL PAPERS SIGNED. ANSWERED ALL QUESTIONS RE RX AND EDUCATED PT RE MEDICATIONS AND F/U APPTS. GAVE FLU AND PNA VACCINATIONS. TOLERATED WELL. IV REMOVED. NO BLEEDING NOTED. PT IS GETTING DRESSED. WILL LET ME KNOW WHEN HER RIDE IS HERE, SO WE CAN WHEEL HER OUT. Addendum: 12/10/19 at 1443 by Ramandeep Oseguera RN DR DONATO ALSO REQUESTED PT TO REQUEST A ROVING FRAME TENDER REFERRAL FROM HER PCP. RELAYED TO PT AND WROTE IT DOWN ON PT'S DC PACKET.
--- NOTE | 2019-12-10 14:48 | NUR ---
RESIDENT CAME BY AND SPOKE TO PT REGARDING NEPHRO REFERRAL. PT IS DRESSED. AWAITING HER RIDE.
== END 2019-12-10 15:10 | disposition home or self-care (01) | DRG 532 ==
LOC: MED 16:44 → MTU 19:34
PROVIDERS: ADMIT General Practice; ATTEND General Practice
PROC: 30233N1 Transfusion of Nonautologous Red Blood Cells into Peripheral Vein, Percutaneous Approach (ICD-10-PCS; principal; 2019-12-08)
PROC: 3E02340 Introduction of Influenza Vaccine into Muscle, Percutaneous Approach (ICD-10-PCS; 2019-12-10)
PROC: 3E0234Z Introduction of Serum, Toxoid and Vaccine into Muscle, Percutaneous Approach (ICD-10-PCS; 2019-12-10)
DX: N93.8 Other specified abnormal uterine and vaginal bleeding (principal); N17.0 Acute kidney failure with tubular necrosis; E43 Unspecified severe protein-calorie malnutrition; D68.59 Other primary thrombophilia; E11.21 Type 2 diabetes mellitus with diabetic nephropathy; E11.22 Type 2 diabetes mellitus with diabetic chronic kidney disease; E83.42 Hypomagnesemia; N18.4 Chronic kidney disease, stage 4 (severe); E83.51 Hypocalcemia; I12.9 Hypertensive chronic kidney disease with stage 1 through stage 4 chronic kidney disease, or unspecified chronic kidney disease; D50.9 Iron deficiency anemia, unspecified; A08.4 Viral intestinal infection, unspecified; B35.1 Tinea unguium; G43.909 Migraine, unspecified, not intractable, without status migrainosus; E66.9 Obesity, unspecified; E78.5 Hyperlipidemia, unspecified; Z88.1 Allergy status to other antibiotic agents; Z79.899 Other long term (current) drug therapy; Z90.49 Acquired absence of other specified parts of digestive tract; Z98.891 History of uterine scar from previous surgery; Z83.3 Family history of diabetes mellitus; Z82.49 Family history of ischemic heart disease and other diseases of the circulatory system; Z91.14 Patient's other noncompliance with medication regimen; Z68.33 Body mass index [BMI] 33.0-33.9, adult
CPT/HCPCS: 36415; 71045; 74018; 76770; 76830; 80048; 80053; 80305; 81001; 81025; 82150; 82607; 82728; 82746; 82948; 83036; 83540; 83690; 83735; 84100; 84134; 84300; 84443; 84484; 85025; 85045; 85610; 85730; 86886; 86900; 86901; 86920; 87081; 87804; 90732; 93005; 99285; J0360; J1815; J2270; J3475; J3490; J7030; J7042; P9016; Q0092

== ENCOUNTER 2019-12-26 15:37 | Emergency (ER) | payer MEDICAID ==
[~2019-12-26] VITALS: Ht 152.4 cm; Wt 68.0 kg
[~2019-12-26 15:37] MED LIST changes: +ATOR20TA PO; +MEDR10TA33 PO; +NORE-29 PO; -NORE5TAB6 PO
[2019-12-26 15:43] VITALS: BP 145/74
--- NOTE | 2019-12-26 15:58 | NUR ---
PA HOOD EVALUATING PT AT BEDSIDE
--- NOTE | 2019-12-26 16:10 | NUR ---
XRAY AT BEDSIDE
--- NOTE | 2019-12-26 16:14 | NUR ---
39/F BIB SELF WITH CC: DRY COUGH X 1 WEEK WORSENING WITH POST TUSSIVE VOMITING. OTHERWISE NO N/V AFTER FOOD. ALSO STATES INTERMITENT SUBJECTIVE FEVER; HEADACHE; SORE THROAT; SOB WITH PLEURITIC CHEST TIGHTNESS. AFEBRILE ORAL TEMP 98 AT THIS TIME. VSS. MED HX: DM, ANEMIA, HTN
[2019-12-26 16:57] VITALS: BP 142/83
--- NOTE | 2019-12-26 16:57 | NUR ---
Gabino de oliveira in [facility] - 12/26/19 at 1706 by [email or web address] DAYRON HOOD AWARE OF PTS PAIN
--- NOTE | 2019-12-26 16:57 | NUR ---
Patient discharged with v/s stable. Written and verbal after care instructions given and explained. Patient alert, oriented and verbalized understanding of instructions. Ambulatory with steady gait. All questions addressed prior to discharge. ID band removed. Patient advised to follow up with PMD. Rx of VENTOLIN, IBUPROFEN, PROMETHAZINE given. Patient educated on indication of medication including possible reaction and side effects. Opportunity to ask questions provided and answered.
== END 2019-12-26 16:57 | disposition home or self-care (01) ==
LOC: MED 15:37
DX: B34.9 Viral infection, unspecified (principal); J98.01 Acute bronchospasm; E11.9 Type 2 diabetes mellitus without complications; I10 Essential (primary) hypertension; Z88.8 Allergy status to other drugs, medicaments and biological substances; Z79.899 Other long term (current) drug therapy
CPT/HCPCS: 71045; 99283; Q0092

== ENCOUNTER 2020-05-06 00:13 | Emergency (ER) | payer MEDICAID ==
[~2020-05-06] VITALS: Ht 152.4 cm; Wt 68.0 kg
[2020-05-06 00:18] VITALS: BP 195/96
--- NOTE | 2020-05-06 00:18 | NUR ---
PT PLACED IN TENT FOR COVID PRECAUTIONS. PT WEARING A MASK.
--- NOTE | 2020-05-06 00:34 | NUR ---
Dr. Pradhan examining patient.
--- NOTE | 2020-05-06 00:39 | NUR ---
PT TAKEN TO BED 3
[2020-05-06 01:00] LABS: BASOPHILS # (AUTO) 0.1 K/uL (0.00-0.22); NEUTROPHILS # (AUTO) 10.3 K/uL (1.8-7.7); WHITE BLOOD COUNT (AUTO) 13.6 K/uL (4.8-10.8)
[2020-05-06 01:05] LABS: BASOPHILS % (AUTO) 0.6 % (0.0-2.0); EOSINOPHILS # (AUTO) 0.2 K/uL (0-0.4); EOSINOPHILS % (AUTO) 1.7 % (0.0-4.0); HEMATOCRIT 23.7 % (36-48); LYMPHOCYTES # (AUTO) 2.1 K/uL (2.5-16.5); LYMPHOCYTES % (AUTO) 15.7 % (20.5-51.1); MEAN CORPUSCULAR HEMOGLOBIN 28 pg (27-31); MEAN CORPUSCULAR HGB CONC 33 g/dL (33-37); MEAN CORPUSCULAR VOLUME 86.3 fL (80-94); MONOCYTES # (AUTO) 0.9 K/uL (0.8-1.0); MONOCYTES % (AUTO) 6.3 % (1.7-9.3); NEUTROPHILS % (AUTO) 75.7 % (42.2-75.2); PLATELET COUNT (AUTO) 304 K/uL (140-450); RED BLOOD CELL COUNT(AUTO) 2.75 MIL/uL (4.20-5.40); RED CELL DISTRIBUTION WIDTH 13.9 % (11.6-13.7)
[2020-05-06] MEDS ORDERED: LABETALOL 100 MG/20 ML VIAL IVP ONE ×2 (01:25→02:20)
[2020-05-06 01:29] LABS: HEMOGLOBIN 7.7 g/dL (12.0-16.0)
[2020-05-06 01:39] LABS: ALBUMIN 2.3 g/dL (3.4-5.0); ANION GAP 16.2 (8-16); CARBON DIOXIDE 20.9 mmol/L (21-32); POTASSIUM 5.1 mmol/L (3.5-5.1); TOTAL BILIRUBIN 0.1 mg/dL (0.0-1.0)
[2020-05-06 01:47] LABS: CREATININE 6.1 mg/dL (0.6-1.3)
--- NOTE | 2020-05-06 01:49 | NUR ---
COVERING FOR PRIMARY RN FOR LUNCH RELIEF. 40/F FROM OVERFLOW ISO TENT WITH A C/O COUGH AND BODY ACHES X 1 WEEK. PT REPORTS THAT SHE HAD BEEN TESTED FOR COVID WITH A PENDING RESULT. LUNG SOUNDS DIMINSHED BILATERALLY. PT APPEARS IN NO DISTRESS. IN BED PENDING MSE.
--- NOTE | 2020-05-06 02:03 | NUR ---
PT PROVIDED BEDPAN TO COLLECT URINE SAMPLE.
--- NOTE | 2020-05-06 02:10 | NUR ---
COVID SWAB COLLECTED AND WALKED TO LAB.
--- NOTE | 2020-05-06 02:17 | NUR ---
PT BP 190/88 , DR. LOGAN MADE AWARE. PER DR. LOGAN ADMINISTER TRANDATE 10 MG IVP ONCE BEFORE D/C.
--- NOTE | 2020-05-06 02:39 | NUR ---
PER DR. LOGAN MEDICATION ORDER , ADMINISTERED 10 MG IVP TRANDATE IN LEFT A/C . PER DR. LOGAN WILL RECHECK BP IN 10 MIN.
--- NOTE | 2020-05-06 02:50 | NUR ---
PT BP 155/71 AFTER ADMINISTRATION OF TRANDATE 10 MG IVP , DR. LOGAN MADE AWARE. PER DR. LOGAN OK TO D/C PT AT THIS TIME.
[2020-05-06 02:55] VITALS: BP 155/71
--- NOTE | 2020-05-06 02:55 | NUR ---
Patient discharged with v/s stable. Written and verbal after care instructions given and explained. Patient alert, oriented and verbalized understanding of instructions. Ambulatory with steady gait. All questions addressed prior to discharge. ID band removed. Patient advised to follow up with PMD. Rx of AZITHROMYCIN, PROMETHAZINE AND PREDNISONE given. Patient educated on indication of medication including possible reaction and side effects. Opportunity to ask questions provided and answered.
== END 2020-05-06 02:55 | disposition home or self-care (01) ==
LOC: MED 00:13
DX: R05 Cough (principal); Z20.828 Contact with and (suspected) exposure to other viral communicable diseases; E11.9 Type 2 diabetes mellitus without complications; I10 Essential (primary) hypertension; Z79.4 Long term (current) use of insulin; Z79.899 Other long term (current) drug therapy; Z88.1 Allergy status to other antibiotic agents
CPT/HCPCS: 36415; 71045; 80053; 83605; 83880; 84484; 85025; 87040; 93005; 96374; 99285; J3490; Q0092; U0003

== ENCOUNTER 2020-05-11 06:57 | Emergency (ER) | payer MEDICAID ==
[~2020-05-11] VITALS: Ht 152.4 cm; Wt 68.0 kg
[2020-05-11 07:05] VITALS: BP 178/97
--- NOTE | 2020-05-11 07:15 | NUR ---
PT W/C ASSISTED TO BEDX 8.
--- NOTE | 2020-05-11 07:19 | NUR ---
40 Y/O F C/C CHEST PAIN STERNUM AREA, NON RADIATING, 8/10 PAIN, SHARP SENSATION, BREATHING EXACERBATES PAIN, NOTHING ALLEVIATES X 1 DAY. PT FURTHER COMPLAINTS OF DIZZINESS, NAUSEA. ALLERGIES BACTRIM. HX DM,KIDNEY DISEASE,HTN,HDL. RX LASIX,LIPITOR,APRESOLINE. NO DIARREAH,VOMITING. SIDE RAIL X1. NEGATIVE LEVINES SIGN.
--- NOTE | 2020-05-11 07:28 | NUR ---
ERMD AT BEDSIDE
[2020-05-11] MEDS ORDERED: ONDANSETRON 4 MG ODT PO ONE (07:30)
[2020-05-11] MEDS ORDERED: FAMOTIDINE 20 MG TAB PO ONE (07:30)
[2020-05-11] MEDS ORDERED: ACETAMINOPHEN 325 MG TAB PO ONE (07:30)
[2020-05-11] MEDS ORDERED: ALUMINUM HYD/MAG/SIMETHICONE 30 ML UDC PO ONE (07:30)
--- NOTE | 2020-05-11 07:34 | NUR ---
RAD AT BEDSIDE
--- NOTE | 2020-05-11 07:45 | NUR ---
LAB AT BEDSIDE
[2020-05-11 07:53] LABS: BASOPHILS # (AUTO) 0.2 K/uL (0.00-0.22); BASOPHILS % (AUTO) 1.5 % (0.0-2.0); EOSINOPHILS # (AUTO) 0.3 K/uL (0-0.4); EOSINOPHILS % (AUTO) 1.8 % (0.0-4.0); HEMATOCRIT 25.3 % (36-48); HEMOGLOBIN 8.1 g/dL (12.0-16.0); LYMPHOCYTES # (AUTO) 2.5 K/uL (2.5-16.5); LYMPHOCYTES % (AUTO) 16.5 % (20.5-51.1); MEAN CORPUSCULAR HEMOGLOBIN 28 pg (27-31); MEAN CORPUSCULAR HGB CONC 32 g/dL (33-37); MEAN CORPUSCULAR VOLUME 86.4 fL (80-94); MONOCYTES # (AUTO) 1.3 K/uL (0.8-1.0); MONOCYTES % (AUTO) 8.8 % (1.7-9.3); NEUTROPHILS % (AUTO) 71.4 % (42.2-75.2); PLATELET COUNT (AUTO) 322 K/uL (140-450); RED BLOOD CELL COUNT(AUTO) 2.93 MIL/uL (4.20-5.40); RED CELL DISTRIBUTION WIDTH 13.5 % (11.6-13.7); WHITE BLOOD COUNT (AUTO) 15.3 K/uL (4.8-10.8)
[2020-05-11 08:15] LABS: ALBUMIN 2.3 g/dL (3.4-5.0); ANION GAP 19.2 (8-16); CARBON DIOXIDE 17.7 mmol/L (21-32); POTASSIUM 4.9 mmol/L (3.5-5.1); TOTAL BILIRUBIN 0.1 mg/dL (0.0-1.0)
[2020-05-11 08:19] LABS: CREATININE 5.7 mg/dL (0.6-1.3)
--- NOTE | 2020-05-11 08:20 | NUR ---
Creatinine 5.7-- critical value received from lab. Dr Orta made aware
[2020-05-11] MEDS ORDERED: HYDROcodone/APAP 5/325 MG 1 TAB TAB PO ONE (08:35)
[2020-05-11 08:44] VITALS: BP 165/85
--- NOTE | 2020-05-11 08:45 | NUR ---
Patient discharged with v/s stable. Written and verbal after care instructions given and explained. Patient alert, oriented and verbalized understanding of instructions. Carried with steady gait. All questions addressed prior to discharge. ID band removed. Patient advised to follow up with PMD. Rx of PEPCID AND ZOFRAN given. Patient educated on indication of medication including possible reaction and side effects. Opportunity to ask questions provided and answered.
== END 2020-05-11 08:45 | disposition home or self-care (01) ==
LOC: MED 06:57
DX: K21.9 Gastro-esophageal reflux disease without esophagitis (principal); R51 Headache; E11.22 Type 2 diabetes mellitus with diabetic chronic kidney disease; I12.0 Hypertensive chronic kidney disease with stage 5 chronic kidney disease or end stage renal disease; N18.6 End stage renal disease; Z90.49 Acquired absence of other specified parts of digestive tract; Z98.890 Other specified postprocedural states; Z79.899 Other long term (current) drug therapy; Z88.1 Allergy status to other antibiotic agents
CPT/HCPCS: 36415; 71045; 80053; 83880; 84484; 85025; 93005; 99285; Q0092; Q0162